=== PATIENT | female | born 1940 ===

== ENCOUNTER 2020-08-10 12:08 | Emergency (ER) | payer MEDICARE, BC ==
--- NOTE | 2020-08-10 13:13 | CT ---
CT of thecervical spine: 08/10/2020 COMPARISON:None available HISTORY:Fall, trauma, pain TECHNIQUE: Serial axial CT imaging at2.5 mm intervals from theskull base through lung apices without contrast. Coronal and sagittal reformatted imaging obtained Findings:Partially visualized paranasal sinuses and mastoid air cells appear well-aerated. There is prominent degenerative change involving the C1-2 articulation on the right. Occipital condyl es, dens, atlantoaxial interspace, craniocervical junction, and cervicothoracic junction demonstrates no acute findings. There is anterolisthesis at C3-4 measuring approximately 3 mm and at C4-5 measuring approximately 2-3 mm. No prevertebral soft tissue swelling. Incidental note is made of an aberrant right subclavian artery. Prominent degenerative endplate changes are present at C4-5, C5-6, and C6-7, with posterior and anter ior osteophyte formation. There is multilevel bilateral facet and uncovertebral osteophyte formation, most prominent at C5-6 and C6-7. The C1 ring appears intact. No acute fracture or evidence of dislocation is seen within the cervical spine. Biapical pleural thickening is noted, right greater than left. IMPRESSION: Multilevel prominent cervical spine degenerative change. No displaced fracture or evidenc e of dislocation.
--- NOTE | 2020-08-10 14:03 | CT ---
CT OF THE BRAIN WITHOUT CONTRAST: 08/10/20 HISTORY: Atrial fibrillation. Fall on Eliquis with head trauma. TECHNIQUE: Multiple contiguous axial images were obtained in a CT of the brain without contrast. FINDINGS: There is scattered hypodensities in the subcortical and periventricular white matter, likely secondar y to small vessel ischemic disease. There is no large confluent infarction. There is no evidence of h ydrocephalus, intracranial hemorrhage, or extra-axial fluid collections. Soft tissue swelling is seen in the right forehead. The underlying calvarium is unremarkable. The vis ualized paranasal sinuses and mastoid air cells are well aerated. IMPRESSION: 1. No evidence of acute intracranial abnormality. 2. Small vessel ischemic disease. POS: [facility]
== END 2020-08-10 14:44 | disposition home or self-care (01) ==
LOC: ERS 12:08
DX: S06.0X9A Concussion with loss of consciousness of unspecified duration, initial encounter (principal); S00.83XA Contusion of other part of head, initial encounter; Z71.6 Tobacco abuse counseling; I10 Essential (primary) hypertension; I48.91 Unspecified atrial fibrillation; Z79.899 Other long term (current) drug therapy; Z79.01 Long term (current) use of anticoagulants; W01.0XXA Fall on same level from slipping, tripping and stumbling without subsequent striking against object, initial encounter; Y92.002 Bathroom of unspecified non-institutional (private) residence as the place of occurrence of the external cause
CPT/HCPCS: 36416; 70450; 72125; 93005; 99406